=== PATIENT | male | born 1995 | race African-American/Black ===

== ENCOUNTER 2021-02-10 14:19 | Emergency (ER) | payer SELFPAY ==
[~2021-02-10] VITALS: Ht 188 cm; Wt 89.8 kg
[2021-02-10] MEDS ORDERED: IBUPROFEN 100 MG/5 ML SUSP PO ONE (15:30)
[2021-02-10] MEDS ORDERED: IBUPROFEN 600 MG TAB ONE (15:44)
== END 2021-02-10 18:42 | disposition home or self-care (01) ==
LOC: FSED 14:40
DX: R07.89 Other chest pain (principal); R00.2 Palpitations; R05 Cough
CPT/HCPCS: 93005; 99282